=== PATIENT | female | born 1955 | race Caucasian/White ===

== ENCOUNTER → 2017-10-12 | Outpatient (CLI) | payer BC ==
--- NOTE | 2017-10-12 23:10 | MR ---
EXAMINATION TYPE: MR knee LT wo con DATE OF EXAM: 10/12/2017 COMPARISON: NONE HISTORY: Left Knee pain and Swelling since November 2016 TECHNIQUE: Multiplanar, multisequence imaging of the left knee is performed without IV contrast. FINDINGS: The anterior and posterior cruciate ligaments are intact. There is a small knee joint effusion. There is vertical and horizontal tear in the posterior horn of the medial meniscus. The lateral meniscus a ppears intact. There is some linear artifact over the medial femoral and tibial condyles. There is mi ld spurring of the medial femoral and tibial condyles. There is no evidence of a fracture. The collat eral ligaments appear intact. There is probably a 2 cm bone bruise in the medial tibial condyle with increased signal on the T2 images. IMPRESSION: Mild knee joint effusion. Complex tear of the posterior horn medial meniscus. No evidence of ligament ous tear. There is evidence of a bone bruise involving the medial tibial condyle. There is artifact i n this region and the possibility of a vertical fracture of the medial tibial condyle cannot be entir wilbur excluded.
== END | disposition home or self-care (01) ==
LOC: RADMRIMAIN 17:28
PROVIDERS: ATTEND Family Medicine
DX: S83.242A Other tear of medial meniscus, current injury, left knee, initial encounter (principal); S80.12XA Contusion of left lower leg, initial encounter

== ENCOUNTER → 2020-07-24 | Outpatient (CLI) | payer MEDICARE ==
[2020-07-24 12:42] LABS: Basophils % (A) 0 %; Eosinophils # (A) 0.1 k/uL (0-0.7); Eosinophils % (A) 1 %; HCT 45.1 % (34.0-46.0); HGB 14.4 gm/dL (11.4-16.0); Lymphocytes # (A) 1.7 k/uL (1.0-4.8); Lymphocytes % (A) 29 %; MCH 30.1 pg (25.0-35.0); MCV 93.9 fL (80.0-100.0); Mean Platelet Volume 7.1; Monocytes # (A) 0.3 k/uL (0-1.0); Monocytes % (A) 5 %; Neutrophils # (A) 3.6 k/uL (1.3-7.7); Neutrophils % (A) 62 %; Platelet Count 228 k/uL (150-450); RDW 12.8 % (11.5-15.5); WBC 5.8 k/uL (3.8-10.6)
[2020-07-24 19:52] LABS: African American GFR (CKD) 76.7 (60.0-200.0); Albumin 4.4 g/dL (3.80-4.90); Albumin/Globulin Ratio 1.69 (1.60-3.17); Anion Gap 9.8 mmol/L (4.00-12.00); BUN/Creat Ratio 14.44 Ratio (12.00-20.00); Calcium 9.3 mg/dL (8.7-10.3); Carbon Dioxide 25.2 mmol/L (21.6-31.8); Chol/HDL Ratio 2.63; Globulin 2.6 g/dL (1.6-3.3); LDL Cholesterol,Calculated 100.4 mg/dL (0.0-131.0); Non-African American GFR(CKD) 66.2 (60.0-200.0); Potassium 4.8 mmol/L (3.5-5.5); Total Bilirubin 0.6 mg/dL (0.3-1.2); VLDL Calculation 15.6 mg/dL (5.00-40.00)
== END | disposition home or self-care (01) ==
LOC: LABWHC1 10:54
PROVIDERS: ATTEND Family Medicine
DX: I10 Essential (primary) hypertension (principal); Z11.59 Encounter for screening for other viral diseases
CPT/HCPCS: 36415; 80053; 80061; 84443; 85025; 86803

== ENCOUNTER → 2021-03-16 | Outpatient (CLI) | payer MEDICARE ==
[2021-03-16 15:13] LABS: Basophils # (A) 0.02 X 10*3/uL (0.00-0.10); Basophils % (A) 0.4 %; Eosinophils # (A) 0.13 X 10*3/uL (0.04-0.35); Eosinophils % (A) 2.5 %; HCT 42.4 % (37.2-46.3); HGB 13.6 g/dL (12.0-15.0); Lymphocytes # (A) 1.66 X 10*3/uL (0.90-5.00); Lymphocytes % (A) 31.7 %; MCH 29.6 pg (27.0-32.0); MCHC 32.1 g/dL (32.0-37.0); MCV 92.4 fL (80.0-97.0); Mean Platelet Volume 9.9 fL (9.5-12.2); Monocytes # (A) 0.38 X 10*3/uL (0.20-1.00); Monocytes % (A) 7.3 %; Neutrophils # (A) 3.03 X 10*3/uL (1.80-7.70); Neutrophils % (A) 57.7 %; Platelet Count 249 X 10*3/uL (140-440); RBC 4.59 X 10*6/uL (4.10-5.20); RDW 12.8 % (11.5-14.5); WBC 5.24 X 10*3/uL (4.50-10.00)
[2021-03-16 18:58] LABS: African American GFR (CKD) 76.1 (60.0-200.0); Albumin 4.2 g/dL (3.80-4.90); Albumin/Globulin Ratio 1.56 (1.60-3.17); Anion Gap 6.1 mmol/L (4.00-12.00); BUN/Creat Ratio 14.44 Ratio (12.00-20.00); Calcium 8.8 mg/dL (8.7-10.3); Carbon Dioxide 26.9 mmol/L (21.6-31.8); Chol/HDL Ratio 2.4; Globulin 2.7 g/dL (1.6-3.3); LDL Cholesterol,Calculated 85.4 mg/dL (0.0-131.0); Non-African American GFR(CKD) 65.7 (60.0-200.0); Potassium 4.5 mmol/L (3.5-5.5); Total Bilirubin 0.6 mg/dL (0.2-1.2); Total Protein 6.9 g/dL (6.2-8.2); VLDL Calculation 16.6 mg/dL (5.00-40.00)
[2021-03-16 19:59] LABS: Estradiol 25.2 pg/mL
[2021-03-16 21:38] LABS: Hepatitis C IgG Antibody Non-Reactive (Non-Reactive)
[2021-03-17 00:32] LABS: Progesterone 0.6 ng/mL
== END | disposition home or self-care (01) ==
LOC: LABWHC1 10:52
PROVIDERS: ATTEND Family Medicine
DX: Z11.59 Encounter for screening for other viral diseases (principal); I10 Essential (primary) hypertension; L68.2 Localized hypertrichosis; R61 Generalized hyperhidrosis
CPT/HCPCS: 36415; 80053; 80061; 82670; 84144; 84403; 84443; 85025; 86803

== ENCOUNTER → 2021-05-13 | Outpatient (CLI) | payer MEDICARE ==
--- NOTE | 2021-05-14 13:48 | MM ---
Reason for exam: screening (asymptomatic). Last mammogram was performed 2 years and 4 months ago. History: Patient is postmenopausal. Physical Findings: A clinical breast exam by your physician is recommended on an annual basis and results should be correlated with mammographic findings. MG 3D Screening Mammo W/Cad Bilateral CC and MLO view(s) were taken. Prior study comparison: January 11, 2019, mammogram. September 21, 2017, mammogram. The breast tissue is heterogeneously dense. This may lower the sensitivity of mammography. There are benign appearing round calcifications bilaterally. There is no discrete abnormality. ASSESSMENT: Benign, BI-RAD 2 RECOMMENDATION: Routine screening mammogram of both breasts in 1 year.
== END | disposition home or self-care (01) ==
LOC: RADMAMWWP 15:27
PROVIDERS: ATTEND Family Medicine
DX: Z12.31 Encounter for screening mammogram for malignant neoplasm of breast (principal); Z78.0 Asymptomatic menopausal state
CPT/HCPCS: 77063; 77067

== ENCOUNTER → 2022-04-01 | Outpatient (CLI) | payer MEDICARE ==
--- NOTE | 2022-04-01 11:28 | US ---
EXAMINATION TYPE: US abdomen complete DATE OF EXAM: 04/01/2022 COMPARISON: NONE CLINICAL HISTORY: R10.12 LEFT UPPER QUADRANT PAIN. LUQ Pain EXAM MEASUREMENTS: Liver Length: 14.5 cm Gallbladder Wall: .2 cm CBD: .7 cm Spleen: 10.4 cm Right Kidney: 10 x 3.9 x 3.6 cm Left Kidney: 10.4 x 5.0 x 3.8 cm Pancreas: Obscured by bowel gas Liver: Increased attenuation Gallbladder: MADY sign Evidence for sonographic Hernandez's sign: No CBD: Minimally dilated Spleen: wnl Right Kidney: wnl Left Kidney: wnl Upper IVC: wnl Abd Aorta: wnl The visualized liver is heterogeneously hyperechoic. Evaluation for focal masses suboptimal due to t he heterogeneity. No surrounding ascites. The intrahepatic portion of the IVC and visualized abdomina l aorta are within normal limits. Scanning of the gallbladder fossa shows curvilinear hyperechoic foc us with posterior shadowing could reflect stone filled contracted gallbladder. Common bile duct is m inimally dilated. No intrahepatic biliary dilatation is evident. The visualized portions of the pancr eas are homogenous. The spleen is unremarkable. Kidneys are symmetric and free of hydronephrosis. No renal lesions are seen. IMPRESSION: Source of left upper quadrant pain not identified. Probable stone filled contracted gallb ladder. Probable mild diffuse fatty infiltration of liver.
--- NOTE | 2022-04-01 11:30 | US ---
EXAMINATION TYPE: US pelvis complete transvag DATE OF EXAM: 04/01/2022 COMPARISON: NONE CLINICAL HISTORY: N93.9 ABN UTERINE AND VAGINAL BLEEDING. spotting TECHNIQUE: Transvaginal (TV) and Transabdominal (TA) . Transabdominal sonographic images of the pel vis were acquired. Transvaginal sonographic images were medically necessary to better assess the fol lowing anatomy: uterus and ovaries EXAM MEASUREMENTS: Uterus: 7.4 x 3.9 x 6.5 cm Endometrial Stripe: 1.1 cm 1. Uterus: Retroverted Heterogenous fibroids seen largest 3.5 x 3.1 x 2.8 cm. 2. Endometrium: anchonic areas seen 3-4 mm 3. Right Ovary: Obscured by overlying bowel gas 4. Left Ovary: Obscured by overlying bowel gas 5. Bilateral Adnexa: wnl 6. Posterior cul-de-sac: wnl Heterogeneous uterus with abnormal thickening of the endometrium up to 11 mm. Some tiny cystic change s present. No free fluid. Technologist identifies isoechoic 3.1 cm fibroid right aspect causing lobul ated contour. Neither ovary clearly seen. No suspicious adnexal masses. IMPRESSION: Abnormal thickening of endometrium, differential includes hyperplasia versus polyp but ca rcinoma cannot be excluded and further investigation with endometrial biopsy is advised.
== END | disposition home or self-care (01) ==
LOC: RADUSWWP 09:21
PROVIDERS: ATTEND Family Medicine
DX: N93.9 Abnormal uterine and vaginal bleeding, unspecified (principal); R93.89 Abnormal findings on diagnostic imaging of other specified body structures
CPT/HCPCS: 76700; 76830; 76856

== ENCOUNTER → 2022-08-25 | Outpatient (CLI) | payer MEDICARE ==
[2022-08-25 18:28] LABS: Basophils # (A) 0.03 X 10*3/uL (0.00-0.10); Basophils % (A) 0.6 %; Eosinophils # (A) 0.14 X 10*3/uL (0.04-0.35); Eosinophils % (A) 2.8 %; HCT 41.6 % (37.2-46.3); HGB 13.8 g/dL (12.0-15.0); Immature Grans, Automated 0.2 %; Lymphocytes # (A) 1.35 X 10*3/uL (0.90-5.00); Lymphocytes % (A) 26.7 %; MCH 29.9 pg (27.0-32.0); MCHC 33.2 g/dL (32.0-37.0); MCV 90.2 fL (80.0-97.0); Mean Platelet Volume 10.3 fL (9.5-12.2); Monocytes # (A) 0.41 X 10*3/uL (0.20-1.00); Monocytes % (A) 8.1 %; NRBC Per 100 WBC 0 /100 WBCS (0.0-0.0); Neutrophils # (A) 3.12 X 10*3/uL (1.80-7.70); Neutrophils % (A) 61.6 %; Platelet Count 224 X 10*3/uL (140-440); RBC 4.61 X 10*6/uL (4.10-5.20); RDW 13.2 % (11.5-14.5); WBC 5.06 X 10*3/uL (4.50-10.00)
[2022-08-25 18:46] LABS: Chol/HDL Ratio 2.26 Ratio; LDL Cholesterol,Calculated 89.9 mg/dL (0.0-131.0); VLDL Calculation 14.46 mg/dL (5.00-40.00)
[2022-08-25 20:34] LABS: ALT 16 U/L (8-44); AST 23 U/L (13-35); African American GFR (CKD) 75.6 (60.0-200.0); Albumin 4.2 g/dL (3.8-4.9); Alkaline Phosphatase 96 U/L (41-126); BUN/Creat Ratio 11.78 Ratio (12.00-20.00); Blood Urea Nitrogen 10.6 mg/dL (9.0-27.0); Calcium 9.3 mg/dL (8.7-10.3); Carbon Dioxide 21.8 mmol/L (20.0-27.5); Chloride 105 mmol/L (96-109); Glucose 90 mg/dL (70-110); Non-African American GFR(CKD) 65.2 (60.0-200.0); Potassium 4.7 mmol/L (3.5-5.5); Sodium 140 mmol/L (135-145); Total Protein 7.2 g/dL (6.2-8.2)
== END | disposition home or self-care (01) ==
LOC: LABWHC1 12:28
PROVIDERS: ATTEND Family Medicine
DX: Z11.59 Encounter for screening for other viral diseases (principal); Z13.1 Encounter for screening for diabetes mellitus; I10 Essential (primary) hypertension
CPT/HCPCS: 36415; 80053; 80061; 83036; 84443; 85025; 86803

== ENCOUNTER → 2023-08-03 | Outpatient (CLI) | payer MEDICARE ==
--- NOTE | 2023-08-07 06:36 | MM ---
Reason for Exam: Screening (asymptomatic). Last mammogram was performed 1 year(s) and 3 month(s) ago. Indicated Problems: Pain of the left side (Global) for 3 Month(s) : COMES AND GOES. Patient History: Menarche at age 12. First Full-Term at age 16. Postmenopausal. Mother had breast cancer at or over age 50. Risk Values: Emely 5 year model risk: 2.9%. NCI Lifetime model risk: 8.4%. Prior Study Comparison: 09/21/2017 Screening Mammogram, Unknown. 01/11/2019 Screening Mammogram, Unknown. 05/13/2021 Bilateral Screening Mammogram, [facility]. 05/16/2022 Bilateral MG 3D screening mammo w/cad, [facility]. Tissue Density: There are scattered fibroglandular densities. Findings: Analyzed By CAD. There is no suspicious group of microcalcifications or new suspicious mass in either breast. Overall Assessment: Negative, BI-RAD 1 Management: Screening Mammogram of both breasts in 1 year. . Patient should continue monthly self-breast exams. A clinical breast exam by your physician is recommended on an annual basis. This exam should not preclude additional follow-up of suspicious palpable abnormalities. Note on Emely scores and lifetime risk: 1. A Emely score greater than 3% is considered moderate risk. If this is the case, consider specialist referral to assess eligibility for a risk reducing agent. 2. If overall lifetime risk for the development of breast cancer is 20% or higher, the patient may qualify for future screening with alternating mammogram and breast MRI. Electronically signed and approved by: Yolanda Bella M.D. Radiologist
== END | disposition home or self-care (01) ==
LOC: RADMAMWWP 13:12
PROVIDERS: ATTEND Family Medicine
DX: Z12.31 Encounter for screening mammogram for malignant neoplasm of breast (principal); Z78.0 Asymptomatic menopausal state; Z80.3 Family history of malignant neoplasm of breast
CPT/HCPCS: 77063; 77067

== ENCOUNTER → 2023-08-30 | Outpatient (CLI) | payer MEDICARE | END | disposition home or self-care (01) | LOC: LABWHC1 10:53 | PROVIDERS: ATTEND Family Medicine | DX: I10 Essential (primary) hypertension (principal) | CPT/HCPCS: 36415; 84443 ==

== ENCOUNTER → 2023-09-28 | Outpatient (CLI) | payer MEDICARE ==
[2023-09-28 15:43] LABS: Basophils # (A) 0.01 X 10*3/uL (0.00-0.10); Basophils % (A) 0.2 %; Eosinophils # (A) 0.09 X 10*3/uL (0.04-0.35); Eosinophils % (A) 1.7 %; HCT 41.6 % (37.2-46.3); HGB 13.7 g/dL (12.0-15.0); Lymphocytes # (A) 1.52 X 10*3/uL (0.90-5.00); Lymphocytes % (A) 29.1 %; MCH 30.1 pg (27.0-32.0); MCHC 32.9 g/dL (32.0-37.0); MCV 91.4 FL (80.0-97.0); Monocytes % (A) 7.7 %; NRBC Per 100 WBC 0 X 10*3/uL (0.00-0.01); Neutrophils # (A) 3.19 X 10*3/uL (1.80-7.70); Neutrophils % (A) 61.1 %; Platelet Count 223 X 10*3/uL (140-440); RBC 4.55 X 10*6/uL (4.10-5.20); RDW 13.2 % (11.5-14.5); WBC 5.22 X 10*3/uL (4.50-10.00)
[2023-09-28 16:10] LABS: ALT 17 U/L (8-44); AST 16 U/L (13-35); Albumin 4.3 g/dL (3.8-4.9); Albumin/Globulin Ratio 1.54 Ratio (1.60-3.17); Alkaline Phosphatase 92 U/L (41-126); BUN/Creat Ratio 12.89 Ratio (12.00-20.00); Blood Urea Nitrogen 11.6 mg/dL (9.0-27.0); Calcium 9.6 mg/dL (8.7-10.3); Carbon Dioxide 27.2 mmol/L (21.6-31.8); Chloride 105 mmol/L (96-109); Chol/HDL Ratio 2.31 Ratio; Globulin 2.8 g/dL (1.6-3.3); Glucose 96 mg/dL (70-110); LDL Cholesterol,Calculated 89.3 mg/dL (0.0-131.0); Potassium 4.8 mmol/L (3.5-5.5); Sodium 142 mmol/L (135-145); Total Bilirubin 0.5 mg/dL (0.3-1.2); Total Protein 7.1 g/dL (6.2-8.2); VLDL Calculation 12.32 mg/dL (5.00-40.00)
== END | disposition home or self-care (01) ==
LOC: LABWHC1 10:59
PROVIDERS: ATTEND Family Medicine
DX: I10 Essential (primary) hypertension (principal)
CPT/HCPCS: 36415; 80053; 80061; 85025

== ENCOUNTER → 2024-08-30 | Outpatient (CLI) | payer MEDICARE ==
--- NOTE | 2024-09-02 11:32 | MM ---
Reason for Exam: Screening (asymptomatic). Last mammogram was performed 1 year(s) and 1 month(s) ago. Patient History: Menarche at age 12. First Full-Term at age 16. Postmenopausal. Mother had breast cancer at or over age 50. Risk Values: Emely 5 year model risk: 3.0%. NCI Lifetime model risk: 8.1%. Prior Study Comparison: 05/13/2021 Bilateral Screening Mammogram, [facility]. 05/16/2022 Bilateral MG 3D screening mammo w/cad, [facility]. 08/03/2023 Bilateral MG 3D screening mammo w/cad, [facility]. Tissue Density: There are scattered areas of fibroglandular density. Findings: Analyzed By CAD. Right breast: There is no suspicious group of microcalcifications or new suspicious mass. Left breast: There is no suspicious group of microcalcifications or new suspicious mass. Benign-appearing calcifications left breast. Overall Assessment: Benign, BI-RAD 2 Management: Screening Mammogram of both breasts in [address] [facility] will attempt to contact patient to return for supplemental views and ultrasound if indicated. Patient should continue monthly self-breast exams. A clinical breast exam by your physician is recommended on an annual basis. This exam should not preclude additional follow-up of suspicious palpable abnormalities. Note on Emely scores and lifetime risk: 1. A Emely score greater than 3% is considered moderate risk. If this is the case, consider specialist referral to assess eligibility for a risk reducing agent. 2. If overall lifetime risk for the development of breast cancer is 20% or higher, the patient may qualify for future screening with alternating mammogram and breast MRI. [facility], , 09/02/2024 11:29 AM. Electronically signed and approved by: Fran Ruiz DO
== END | disposition home or self-care (01) ==
LOC: RADMAMWWP 09:58
PROVIDERS: ATTEND Family Medicine
DX: Z12.31 Encounter for screening mammogram for malignant neoplasm of breast (principal); Z78.0 Asymptomatic menopausal state; Z80.3 Family history of malignant neoplasm of breast; R92.323 Mammographic fibroglandular density, bilateral breasts
CPT/HCPCS: 77063; 77067